=== PATIENT | male | born 1970 | race African-American/Black ===

== ENCOUNTER → 2020-03-02 | Outpatient (CLI) | payer BC ==
--- NOTE | 2020-03-02 12:52 | KCIC ---
ANKLE BILAT 3V DATE: 03/02/2020 12:00 AM INDICATION: Bilateral ankle pain for one month, no known injury COMPARISON: None. FINDINGS: Left: No acute osseous abnormality. Ankle mortise and tibiofibular syndesmosis are maintained. Soft tissues are unremarkable. Right: No acute osseous abnormality. Ankle mortise and tibiofibular syndesmosis are maintained. Soft tissues are unremarkable. IMPRESSION: No acute osseous abnormality. Electronically signed by: Samuel Berry MD (03/02/2020 12:49 PM) [id number]
== END ==
LOC: KCIC 12:25
PROVIDERS: ATTEND Family Medicine
DX: M25.571 Pain in right ankle and joints of right foot (principal); M25.572 Pain in left ankle and joints of left foot
CPT/HCPCS: 73610